=== PATIENT | male | born 1995 | race Hispanic/Latino ===

== ENCOUNTER 2017-06-11 17:31 | Emergency (ER) | payer MEDICAID, OTHER ==
[2017-06-11] MEDS ORDERED: BENADRYL ONE (18:09)
[2017-06-11] MEDS ORDERED: ATIVAN ONE (18:10)
[2017-06-11] MEDS ORDERED: HALDOL ONE (18:10)
[2017-06-11 18:26] LABS: Hemoglobin 17.4 gm/dl (11.8-15.2); Mean Corpuscular HGB Conc 35 % (32-34); Mean Corpuscular Hemoglobin 33 pg (28-32); Mean Corpuscular Volume 94 fl (84-94); Platelet Count 227 K/mm3 (140-440); Red Blood Count 5.34 M/mm3 (3.65-5.03); Red Cell Distribution Width 12.7 % (13.2-15.2)
--- NOTE | 2017-06-11 18:27 | Emergency Department Report ---
HPI - General Chief Complaint: Psych Time Seen by Provider: 06/11/17 18:13 - HPI HPI: 21-year-old male got into an argument with his mother became suicidal, left house came back with left arm with multiple superficial cuts bleeding parent and sister called 911 to bring patient to hospital to get psychiatric help. Once [place] arrival at the house patient refused to come to the ED but did voice suicidal ideations therefore PD was called handcuff patient and he was forcefully brought to ED. Upon arrival in the emergency room, patient refused to be cooperative with labs, stating he doesn't care anymore, stating suicidal ideations, he was placed in restraints and labs were drawn. He became very agitated requiring aliquots of Haldol, Benadryl, Ativan. ED Past Medical Hx - Past Medical History Previous Medical History?: No Hx Hypertension: No Hx CVA: No - Surgical History Past Surgical History?: No - Social History Smoking Status: Never Smoker Substance Use Type: None - Medications Home Medications: Home Medications Medication Instructions Recorded Confirmed Last Taken Type No Known Home Medications [No 11/17/12 06/11/17 Unknown History Reported Home Medications] ED Review of Systems ROS: Stated complaint: SUICIDLE Other details as noted in HPI Comment: All other systems reviewed and negative Skin: rash, lesions, other (superficial lacerations) Neurological: denies: headache, weakness Psychiatric: depression, suicidal thoughts Physical Exam - Physical Exam Physical Exam: - Physical Exam Physical Exam: - General Limitations: No Limitations General appearance: alert, anxious, agitated, combative - Head Head exam: Present: atraumatic, normocephalic - Eye Eye exam: Present: normal appearance - ENT ENT exam: Present: mucous membranes moist - Neck Neck exam: Present: normal inspection - Respiratory Respiratory exam: Present: normal lung sounds bilaterally. Absent: respiratory distress - Cardiovascular Cardiovascular Exam: Present: normal rhythm, tachycardia. Absent: systolic murmur, diastolic murmur, rubs, gallop - GI/Abdominal GI/Abdominal exam: Present: soft, normal bowel sounds - Extremities Exam Extremities exam: Present: Right forearm with multiple superficial skin lacerations bleeding - Back Exam Back exam: Present: normal inspection - Neurological Exam Neurological exam: Present: alert, oriented X3 - Psychiatric Psychiatric exam: Depressed mood, agitated, combative - Skin Skin exam: Present: warm, dry, intact, normal color. Absent: rash ED Medical Decision Making - Lab Data Result diagrams: 06/11/17 18:00 06/14/17 05:37 Critical care attestation.: If time is entered above; I have spent that time in minutes in the direct care of this critically ill patient, excluding procedure time. ED Disposition Clinical Impression: Suicide gesture Qualifiers: Encounter type: initial encounter Qualified Code(s): X83.8XXA - Intentional self-harm by other specified means, initial encounter Major depression Qualifiers: Major depression recurrence: recurrent Active/Remission status: currently active Major depression episode severity: severe Psychotic features: with psychotic features Qualified Code(s): F33.3 - Major depressive disorder, recurrent, severe with psychotic symptoms Disposition: [id number]/TX-65 PSY HOSP/PSY UNIT Is pt being admited?: No Does the pt Need Aspirin: No Condition: Stable Referrals: PRIMARY CARE, [Primary Care Provider] - 3-5 Days
[2017-06-11 18:28] LABS: Bilirubin,Urine NEG (Negative); Blood,Urine MOD (Negative); Color,Urine Red (Yellow); Protein,Urine <15 mg/dL mg/dL (Negative); Urobilinogen,Urine < 2.0 mg/dL (<2.0)
[2017-06-11 18:35] LABS: Amphetamine Screen,Urine PRESUMPTIVE NEGATIVE; Cannabinoid Screen,Urine PRESUMPTIVE NEGATIVE; Methadone Screen,Urine PRESUMPTIVE NEGATIVE
[2017-06-11 18:45] LABS: Basophils % (Auto) 0.7 % (0.0-1.8); Eosinophils % (Auto) 0.8 % (0.0-4.3); Lymphocytes % (Auto) 21.8 % (13.4-35.0); Monocytes % (Auto) 4.8 % (0.0-7.3)
[2017-06-11 18:46] LABS: Basophils # (Auto) 0.1 K/mm3 (0.0-0.1); Eosinophils # (Auto) 0.1 K/mm3 (0.0-0.4); Lymphocytes # (Auto) 2.2 K/mm3 (1.2-5.4); Monocytes # (Auto) 0.5 K/mm3 (0.0-0.8)
[2017-06-11 18:47] LABS: Albumin 5.5 g/dL (3.9-5); BUN/Creatinine Ratio 14; Blood Urea Nitrogen 10 mg/dL (9-20); Calcium 10.3 mg/dL (8.4-10.2); Hemolysis Index 249
[2017-06-11 18:56] LABS: Alanine Aminotransferase 30 units/L (7-56)
[2017-06-11 19:02] LABS: Benzodiazepines Screen,Urine PRESUMPTIVE POSITIVE; Cocaine Screen,Urine PRESUMPTIVE POSITIVE; Opiate Screen,Urine PRESUMPTIVE POSITIVE
[2017-06-11] MEDS ORDERED: HALDOL IM ONE (19:03)
[2017-06-11] MEDS ORDERED: BENADRYL IV ONE (19:03)
[2017-06-11] MEDS ORDERED: ATIVAN IV NR (19:15)
--- NOTE | 2017-06-13 16:44 | Consultation ---
History of Present Illness - Reason for Consult Reason for consult: psych consult - Chief Complaint Chief complaint: CC: " outbreak yesterday" 21 year old HM presents to [facility]. We've been asked to see the patient for a psych eval. The patient notes that he had an argument with his mother over "life". He decided to leave the house and while walking down the street he saw a piece of glass. He took the glass and made several horizontal cuts on his left arm in an attempt to deal with his depressed mood. The patient notes that when he got home, his family found out and call the police. The patient does agree that he needs help. He admits to poor coping skills and depression for many years. Currently he denies any SI but feels hopeless at times. No psychosis or euphoria. He denies ''etoh or illicit drug use. Medications and Allergies Allergies Allergy/AdvReac Type Severity Reaction Status Date / Time No Known Allergies Allergy Unverified 11/17/12 12:58 Home Medications Medication Instructions Recorded Confirmed Last Taken Type No Known Home Medications [No 11/17/12 06/11/17 Unknown History Reported Home Medications] Past psychiatric history - Past Medical History Past Medical History: No medical history - past Psychiatric treatment and history psychiatric treatment history: Inpt: none outpt: none- but saw school counselors in past past psych meds- none family psych history- none +Suicide attempts- cutting arm substance history- none- no etoh or legal issues - Social History Social history: other (lives with parents, not dating, no children, not working , high school in 12 grade.) Mental Status Exam - Vital signs Last Vital Signs Temp 97.9 F 06/13/17 07:57 Pulse 85 06/13/17 07:57 Resp 16 06/13/17 07:58 BP 127/89 06/13/17 07:57 Pulse Ox 98 06/13/17 07:57 - Exam Orientation: time, place, person Affect: depressed Mood: sad Thought Process: Intact Perceptions: none Speech: normal rate and pattern Concentration: focused Motor activity: normal Level of consciousness: alert Memory: Intact Interaction: cooperative Mini mental status exam(if necessary): 24-30 Results Result Diagrams: 06/11/17 18:00 06/11/17 18:00 All other labs normal. Assessment and Plan Assessment and plan: 21 year old HM presents to [facility]. We've been asked to see the patient for a psych eval. The patient notes that he had an argument with his mother over "life". He decided to leave the house and while walking down the street he saw a piece of glass. He took the glass and made several horizontal cuts on his left arm in an attempt to deal with his depressed mood. Dx: Major depression disorder- rec severe with no psychosis, eval for opiate abuse-mild 1. depression- start zoloft 50 mg po daily- discussed side effects, risks, benefits and black box warning- transfer to psych eval. 2. tested positive for opiates- pt denies any illicit drug use- will follow and observe for any withdrawal
[2017-06-14 05:56] LABS: BUN/Creatinine Ratio 12; Blood Urea Nitrogen 11 mg/dL (9-20); Calcium 9.5 mg/dL (8.4-10.2); Hemolysis Index 5
[2017-06-14] MEDS: ZOLOFT PO SCH (10:55)
[2017-06-14] MEDS ORDERED: ALUM-MAG HYDROX-SIMETH 200-200-20MG/5ML PO ONE (20:15)
[2017-06-14] MEDS ORDERED: ZOFRAN ODT PO ONE (20:16)
[2017-06-15] MEDS: ZOLOFT PO SCH (10:04)
[2017-06-16 04:22] VITALS: BP 122/64
--- NOTE | 2017-06-17 08:05 | Progress Note ---
Subjective - Reason for Consult Consult date: 06/14/17 Reason for consult: Psychiatric Follow-up Evaluation - Chief Complaint Chief complaint: William is a 21 year old male who presents to [facility] after self injurious behaviors. Today, he reports " I feel good. I am here because of self harm. I cut myself on the wrist with a piece of glass. To be honest I was drinking when I did that." Although patient denied alcohol abuse or illicit drug use to previous provider, today he reports that he did have a drink before the incident that lead to his hospitalization. Patient reports, he will refuse Zoloft in the future. He states, " Hell no I'm not taking medications, I don't need it." Today, after being compliant with Zoloft , patient endorses vomiting as a side effect. Mental Status Exam - Vital signs Last Vital Signs Temp 98 F 06/16/17 01:00 Pulse 78 06/16/17 01:00 Resp 18 06/16/17 01:00 BP 122/64 06/16/17 01:00 Pulse Ox 100 06/16/17 01:00 - Exam Narrative exam: Mental Status Exam General Appearance: Causally Dressed-hospital gown Eye Contact: Intermittent Orientation: Alert and oriented x4 ( person, place, time, and situation) Attitude/Behavior: Cooperative Sensorium: Clear Psychomotor & Musculoskeletal Activity: WNL Mood: "I'm good." Affect: Appropriate Speech/Language: Normal rate and tone Thought Processes: Circumstantial Thought Content: Reality Oriented Perception: WNL-patient denies Concentration/Attention: Impaired Attention Suicidal Ideations/Plan: Patient denies Homicidal Ideations/Plan: Patient denies Judgement: Limited Insight: Poor Assessment and Plan Impression: William is a 21 year old HM who presents to [facility] after self injurious behaviors ( cut self with a piece of glass on the wrist). Today, patient reports " I'm good." He appears to be minimizing alcohol and drug use. Insight and judgment is poor. He denies SI/HI, A/VH, and delusions. Although patient was compliant with Zoloft today he reports in the future he will not take medication. He endorses vomiting as a side effect. DDx: Major depression disorder- rec severe with no psychosis, eval for opiate abuse-mild Plan 1. Will continue 1013 and reassess on 06/15/17. 2. Will monitor for alcohol and opiate withdrawals. 3. Encourage compliance with medication. Educated patient on other SSRI's other than Zoloft. 4. Assist with placement to an inpatient facility. 5. Educate patient on substance abuse.
--- NOTE | 2017-06-17 08:06 | Progress Note ---
Subjective - Reason for Consult Consult date: 06/15/17 Reason for consult: Psychiatric Follow-up Evaluation - Chief Complaint Chief complaint: William is a 21 year old male who presents to [facility], [place] after self injurious behaviors. Today, he reports " I feel good. I am here because of self harm. I cut myself on the wrist with a piece of glass. Today, he states " I feel very good. They offered me the medication this morning and I refused. I still feel good." Patient continues to deny suicidal ideations. He reports that he has no desire to self harm. Denies any withdrawal symptoms. Mental Status Exam - Vital signs Last Vital Signs Temp 98 F 06/16/17 01:00 Pulse 78 06/16/17 01:00 Resp 18 06/16/17 01:00 BP 122/64 06/16/17 01:00 Pulse Ox 100 06/16/17 01:00 - Exam Narrative exam: Mental Status Exam General Appearance: Causally Dressed-hospital gown Eye Contact: Intermittent Orientation: Alert and oriented x4 ( person, place, time, and situation) Attitude/Behavior: Cooperative Sensorium: Clear Psychomotor & Musculoskeletal Activity: WNL Mood: "I'm calm." Presents anxious. Affect: Appropriate Speech/Language: Normal rate and tone Thought Processes: Circumstantial Thought Content: Reality Oriented Perception: WNL-patient denies Concentration/Attention: Impaired Attention/concentration Suicidal Ideations/Plan: Patient denies Homicidal Ideations/Plan: Patient denies Judgement: Limited Insight: Poor Assessment and Plan Impression: William is a 21 year old HM who presents to [facility] after self injurious behaviors ( cut self with a piece of glass on the wrist). Today, he presents euthymic but anxious. He is noncompliant with medication. He refuses to take any medication. He denies SI/HI, A/VH, and delusions. DDx: Major depression disorder- rec severe with no psychosis, eval for opiate abuse-mild Plan 1. Will continue 1013 and reassess on 06/16/17. 2. Will monitor for alcohol and opiate withdrawals. 3. Encourage compliance with medication. Educated patient on other SSRI's other than Zoloft. 4. Assist with placement to an inpatient facility. 5. Educate patient on substance abuse.
== END 2017-06-16 04:27 ==
LOC: ED 17:31
DX: F32.9 Major depressive disorder, single episode, unspecified (principal); S41.112A Laceration without foreign body of left upper arm, initial encounter; F11.10 Opioid abuse, uncomplicated; Z79.899 Other long term (current) drug therapy; X78.9XXA Intentional self-harm by unspecified sharp object, initial encounter; Y93.89 Activity, other specified; Y99.8 Other external cause status; Y92.89 Other specified places as the place of occurrence of the external cause
CPT/HCPCS: 36415; 80048; 80053; 80307; 81001; 85025; 96372; 96374; 96375; 99285; G0480; J1200; J1630; J2060; 80320; Q0162